=== PATIENT | male | born 1960 | race Caucasian/White ===

== ENCOUNTER → 2019-04-13 | Outpatient (CLI) | payer BC ==
[2019-04-13 16:58] LABS: African American GFR (CKD) >90 (>60 ml/min/1.73 sqM); Anion Gap 12 mmol/L; Blood Urea Nitrogen 11 mg/dL (9-20); Carbon Dioxide 26 mmol/L (22-30); Chloride 100 mmol/L (98-107); Potassium 4.3 mmol/L (3.5-5.1); Sodium 138 mmol/L (137-145)
[2019-04-13 17:02] LABS: HCT 44.6 % (39.0-53.0); HGB 14.4 gm/dL (13.0-17.5); MCH 28.6 pg (25.0-35.0); MCHC 32.3 g/dL (31.0-37.0); MCV 88.6 fL (80.0-100.0); Platelet Count 231 k/uL (150-450); RBC 5.03 m/uL (4.30-5.90); RDW 13.3 % (11.5-15.5); WBC 8.3 k/uL (3.8-10.6)
== END | disposition home or self-care (01) ==
LOC: LABPAT 15:46
PROVIDERS: ATTEND Internal Medicine Interventional Cardiology
DX: Z01.812 Encounter for preprocedural laboratory examination (principal); I25.10 Atherosclerotic heart disease of native coronary artery without angina pectoris
CPT/HCPCS: 80051; 82565; 84520; 85027

== ENCOUNTER → 2019-04-22 | Day surgery (SDC) | payer BC ==
[2019-04-19 16:19] VITALS: BMI 36.9
[~2019-04-22] MED LIST: ALPRAZolam 0.25 MG TAB PO PRN; ALPRAZolam 0.5 MG TAB PO PRN; ASPIRIN 325 MG TAB PO ONE; ATORVASTATIN 80 MG TAB PO ONE; HYDROmorphone 0.5 MG/0.5 ML SYRINGE IVP STA; HYDROmorphone 1 MG/ML 1 ML SYRINGE IVP ONE; HYDROmorphone 1 MG/ML 1 ML SYRINGE ONE; IOPAMIDOL-370 125ML BTL INJ ONE; LIDOCAINE 1% INJ 10MG/ML (20 ML MDV) ONE; LIDOCAINE 1% INJ 10MG/ML (20 ML MDV) SQ ONE; MIDAZOLAM 2 MG/2 ML VIAL IVP ONE; NITROGLYCERIN SL TABS 0.4 MG TAB SUBLINGUAL PRN; RX INFO: IV CONTRAST WAS GIVEN 1 EACH MISC MISCELLANE PRN; SODIUM CHLORIDE 0.9% 1,000 ML IV SCH; SODIUM CHLORIDE 0.9% 1,000 ML in EMPTY BAG 1 BAG IV ONE; hydrALAZINE HCL 20 MG/ML 1 ML VIAL IVP STA
[2019-04-22 11:08] VITALS: RESP 18; TEMP 98.1
[2019-04-22 11:11] LABS: Glucose,Whole Blood 101 mg/dL (75-99)
--- NOTE | 2019-04-22 12:47 | CC ---
CARDIAC CATHETERIZATION REPORT DATE OF SERVICE: 04/22/2019 PERFORMING PHYSICIAN: Sam Rodney MD, Needle Board Repairer. PROCEDURE PERFORMED: 1. Selective left and right coronary angiogram. 2. ECHAVARRIA to LAD angiogram. 3. SVG to diagonal angiogram. 4. Left heart catheterization. INDICATION: This is a 58-year-old gentleman with history of coronary artery disease and prior coronary artery bypass grafting as well as stenting with the last heart catheterization was performed in 2016, showing severe triple-vessel coronary artery disease with patent ECHAVARRIA to LAD, critical disease involving the left circumflex coronary artery and critical disease involving the SVG to diagonal, and patent SVG to RCA, underwent at that point, successful stenting of the left circumflex as well as the SVG to diagonal, was seen in the office recently complaining of chest discomfort concerning for angina. He refused proceeding with a heart catheterization when I asked him to do it because he was busy at work and would like to wait a few more weeks. Because he continues to have chest discomfort, he decided to go with a heart catheterization. APPROACH: Right common femoral artery. COMPLICATION: None. LEVEL OF SEDATION: Moderate with sedation length of 38 minutes. PROCEDURE DESCRIPTION: After obtaining an informed consent, the patient was brought to the cardiac aquatic life laborer. The right common femoral artery was cannulated using micropuncture technique. The micropuncture wire passed easily, then I placed a 6-[place] sheath 11 cm in the right common femoral artery. At that point, I did selective left and right coronary angiogram. That was performed using JL4 and JR4 catheters. ECHAVARRIA to LAD angiogram was performed using JR4 catheter. SVG to diagonal angiogram was performed using the JR4 catheter. The SVG to RCA was performed using Srikanth Landaverde catheter. Left heart catheterization was performed using 6-[place] pigtail catheter. The procedure was completed without any complication. SELECTIVE CORONARY ANGIOGRAM: 1. The left main appeared to have mild to moderate disease in the stented segment. The left main continues as left circumflex without LAD which is occluded. 2. The left circumflex appeared to have mild disease only. Gives rise into a large OM branch which seems to be normal. 3. The right coronary artery is chronically occluded in the proximal portion. 4. The LAD is chronically occluded from the ostium. CORONARY BYPASSES ANGIOGRAM: 1. The ECHAVARRIA to LAD is patent and feeding the diagonal branch. 2. The SVG to diagonal is occluded. 3. The SVG to RCA is patent. CONCLUSION: 1. Severe triple-vessel coronary artery disease. 2. Mild to moderate in-stent restenoses involving the distal left main/left circumflex coronary artery. 3. Patent ECHAVARRIA to LAD. 4. Occluded SVG to diagonal branch. 5. Patent SVG to RCA. POSTPROCEDURE MANAGEMENT: 1. I did advise maximized medical treatment at this point. 2. Continue watching for progression in the disease involving the stent in the distal left main and left circumflex. 3. Follow up with the patient. MMODL / IJN: [id number] /
[2019-04-22 16:42] VITALS: BP 119/67; PULSE 91
== END ==
LOC: CATHCVL 10:32
PROVIDERS: ATTEND Internal Medicine Interventional Cardiology
DX: I25.110 Atherosclerotic heart disease of native coronary artery with unstable angina pectoris (principal); T82.855A Stenosis of coronary artery stent, initial encounter; I25.82 Chronic total occlusion of coronary artery; I25.810 Atherosclerosis of coronary artery bypass graft(s) without angina pectoris; E78.00 Pure hypercholesterolemia, unspecified; I10 Essential (primary) hypertension; E11.9 Type 2 diabetes mellitus without complications; E78.5 Hyperlipidemia, unspecified; E66.9 Obesity, unspecified; F17.210 Nicotine dependence, cigarettes, uncomplicated; Z79.84 Long term (current) use of oral hypoglycemic drugs; Z79.899 Other long term (current) drug therapy; Z79.82 Long term (current) use of aspirin; Z79.02 Long term (current) use of antithrombotics/antiplatelets; Z95.5 Presence of coronary angioplasty implant and graft; Z95.1 Presence of aortocoronary bypass graft; Z82.49 Family history of ischemic heart disease and other diseases of the circulatory system; Z68.36 Body mass index [BMI] 36.0-36.9, adult
CPT/HCPCS: 93459; C1894; C1769 ×2; C1760; J2250; J2001; J1170; Q9967

== ENCOUNTER → 2019-11-29 | Outpatient (CLI) | payer BC ==
--- NOTE | 2019-11-29 16:15 | XR ---
EXAMINATION TYPE: XR chest 2V DATE OF EXAM: 11/29/2019 COMPARISON: NONE HISTORY: Shortness of breath TECHNIQUE: Frontal and lateral views of the chest are obtained. FINDINGS: Scattered senescent parenchymal changes noted. Hyperinflation compatible with COPD. No evidence for infiltrate. No evidence for atelectasis. Heart size is stable. Mediastinal structures are stable and grossly unremarkable. No evidence for hilar prominence. Degenerative changes dorsal spine. IMPRESSION: 1. No evidence for acute pulmonary disease. The patient is cleared for MRI.
--- NOTE | 2019-11-29 16:17 | XR ---
EXAMINATION TYPE: XR orbit detect foreign body DATE OF EXAM: 11/29/2019 COMPARISON: NONE HISTORY: MRI exam TECHNIQUE: 3 views of the orbits FINDINGS: 3 views of the orbits fail demonstrate evidence for radiopaque foreign body. The orbits are intact. IMPRESSION: The patient is cleared for MRI.
== END | disposition home or self-care (01) ==
LOC: RADXRMAIN 15:52
PROVIDERS: ATTEND Physical Medicine & Rehabilitation
DX: Z01.818 Encounter for other preprocedural examination (principal); E11.9 Type 2 diabetes mellitus without complications; K21.9 Gastro-esophageal reflux disease without esophagitis; M54.16 Radiculopathy, lumbar region; M47.817 Spondylosis without myelopathy or radiculopathy, lumbosacral region; M16.0 Bilateral primary osteoarthritis of hip; Z95.1 Presence of aortocoronary bypass graft; Z95.5 Presence of coronary angioplasty implant and graft; Z79.02 Long term (current) use of antithrombotics/antiplatelets; Z87.821 Personal history of retained foreign body fully removed
CPT/HCPCS: 70030; 71046

== ENCOUNTER 2020-12-03 05:59 | Day surgery (SDC) | payer BC ==
[~2020-12-03 05:59] MED LIST changes: -ASPIRIN 325 MG TAB PO ONE; -ATORVASTATIN 80 MG TAB PO ONE; -HYDROmorphone 0.5 MG/0.5 ML SYRINGE IVP STA; -HYDROmorphone 1 MG/ML 1 ML SYRINGE IVP ONE; -HYDROmorphone 1 MG/ML 1 ML SYRINGE ONE; -IOPAMIDOL-370 125ML BTL INJ ONE; -LIDOCAINE 1% INJ 10MG/ML (20 ML MDV) ONE; -LIDOCAINE 1% INJ 10MG/ML (20 ML MDV) SQ ONE; -MIDAZOLAM 2 MG/2 ML VIAL IVP ONE; -RX INFO: IV CONTRAST WAS GIVEN 1 EACH MISC MISCELLANE PRN; -SODIUM CHLORIDE 0.9% 1,000 ML IV SCH; -hydrALAZINE HCL 20 MG/ML 1 ML VIAL IVP STA
[2020-12-03 06:33] LABS: Glucose,Whole Blood 120 mg/dL (75-99)
[2020-12-03 06:37] LABS: Basophils # (A) 0.1 k/uL (0-0.2); Basophils % (A) 1 %; Eosinophils # (A) 0.2 k/uL (0-0.7); Eosinophils % (A) 2 %; HCT 40.9 % (39.0-53.0); HGB 13.9 gm/dL (13.0-17.5); Lymphocytes # (A) 1.5 k/uL (1.0-4.8); Lymphocytes % (A) 25 %; MCH 29.3 pg (25.0-35.0); MCHC 33.9 g/dL (31.0-37.0); MCV 86.4 fL (80.0-100.0); Mean Platelet Volume 7.5; Monocytes # (A) 0.6 k/uL (0-1.0); Monocytes % (A) 9 %; Neutrophils # (A) 3.7 k/uL (1.3-7.7); Neutrophils % (A) 61 %; Platelet Count 196 k/uL (150-450); RBC 4.73 m/uL (4.30-5.90); RDW 13.8 % (11.5-15.5); WBC 6.1 k/uL (3.8-10.6)
[2020-12-03] MEDS ORDERED: ATORVASTATIN 80 MG TAB PO ONE (07:00)
[2020-12-03] MEDS ORDERED: HEPARIN SODIUM,PORCINE 10,000 UNIT in SODIUM CHLORIDE 0.9% 1,000 ML IRRIGATION PRN (07:00)
[2020-12-03] MEDS ORDERED: HEPARIN SODIUM,PORCINE 2,500 UNIT in SODIUM CHLORIDE 0.9% 250 ML IRRIGATION PRN (07:00)
[2020-12-03] MEDS ORDERED: ASPIRIN 325 MG TAB PO ONE (07:00)
[2020-12-03] MEDS ORDERED: LIDOCAINE 1% INJ 10MG/ML (20 ML MDV) ONE (07:21)
[2020-12-03] MEDS ORDERED: MIDAZOLAM 2 MG/2 ML VIAL IVP ONE ×3 (07:48→08:31)
[2020-12-03] MEDS ORDERED: LIDOCAINE 1% INJ 10MG/ML (20 ML MDV) SQ ONE (07:51)
[2020-12-03] MEDS ORDERED: fentaNYL (PF) 50 MCG/ML 2 ML AMP ONE (08:05)
[2020-12-03] MEDS ORDERED: fentaNYL (PF) 50 MCG/ML 2 ML AMP IVP ONE (08:07)
[2020-12-03] MEDS ORDERED: HEPARIN SODIUM 1,000 UN/ML (10ML VL) ONE (08:12)
[2020-12-03] MEDS ORDERED: HEPARIN SODIUM 1,000 UN/ML (10ML VL) IV ONE (08:14)
[2020-12-03] MEDS ORDERED: IOPAMIDOL-370 125ML BTL INJ ONE ×2 (08:41→08:50)
[2020-12-03] MEDS ORDERED: CLOPIDOGREL 75 MG TAB ONE (08:44)
[2020-12-03] MEDS ORDERED: CLOPIDOGREL 75 MG TAB PO ONE (08:46)
[2020-12-03] MEDS ORDERED: NON FORMULARY DRUG (Liraglutide [Victoza 2-Pak] 0.6 MG/0.1 ML Pen.Injctr) SQ SCH (09:00)
[2020-12-03] MEDS ORDERED: NON FORMULARY DRUG (Ubidecarenone [Co Q-10] 100 MG Capsule) PO SCH (09:00)
[2020-12-03] MEDS ORDERED: NON FORMULARY DRUG (Vitamin B Complex [Vitamin B Complex] 1 EACH Capsule) PO SCH (09:00)
[2020-12-03] MEDS ORDERED: MAG HYDROX/AL HYDROX/SIMETH 30 ML CUP PO PRN (09:03)
[2020-12-03] MEDS ORDERED: ATROPINE SULFATE 0.1 MG/ML 10ML SYRINGE IV PRN (09:03)
[2020-12-03] MEDS ORDERED: RX INFO: IV CONTRAST WAS GIVEN 1 EACH MISC MISCELLANE PRN (09:03)
[2020-12-03] MEDS: PIOGLITAZONE 15 MG TAB PO SCH (13:54)
[2020-12-03] MEDS: SODIUM CHLORIDE 0.9% 1,000 ML IV SCH (14:12)
[2020-12-03 15:39] VITALS: BMI 38.9
[2020-12-03 16:48] LABS: Glucose,Whole Blood 89 mg/dL (75-99)
--- NOTE | 2020-12-03 16:53 | CC ---
CARDIAC CATHETERIZATION REPORT DATE OF SERVICE: December 03, 2020. PERFORMING PHYSICIAN: Sam Rodney MD. PROCEDURE PERFORMED: 1. Selective left and right coronary angiogram. 2. ECHAVARRIA to LAD angiogram. 3. SVG to RCA angiogram. 4. Left heart catheterization. 5. Fractional flow reserve, FFR of the LCX. 6. Successful stenting of the left circumflex using 3.0 x 15 mm Xience drug-eluting stent with an excellent angiographic results. 7. Successful stenting of protected left main using 3.5 x 8 mm Xience TATIANNA with an excellent angiographic result. 8. Selective right common femoral artery angiogram. INDICATION: This is a pleasant 60-year-old gentleman with coronary artery disease and prior revascularization was diagnosed recently with cardiomyopathy. APPROACH: Right common femoral artery. COMPLICATION: None. LEVEL OF SEDATION: Moderate with sedation length of 65 minutes. PROCEDURE DESCRIPTION: After obtaining informed consent, the patient was brought to the cardiac geophysical laboratory supervisor. The right common femoral artery was cannulated using micropuncture technique and the micropuncture wire passed easily. Then I placed a 6-[place]banian sheath 11 cm at the right groin. Selective left and right coronary angiogram done using JL4 and JR4 catheters. ECHAVARRIA to LAD angiogram was performed using the JR4 catheter and the SVG to RCA angiogram was performed using Srikanth Landaverde catheter. Left heart catheterization was performed using the Srikanth Landaverde, which crossed the aortic valve. Then I did pullback across the valve. After that, I did intervene on the left circumflex. Please see a separate paragraph for that. SELECTIVE CORONARY ANGIOGRAM: 1. The left main has disease appeared to be in the range of 50%. Bifurcates into occluded LAD and left circumflex. 2. The left circumflex is a large caliber vessel. It is a nondominant vessel. The proximal left circumflex has a lesion appeared to be in the range of 70%. That was documented by FFR. 3. The RCA is 100% occluded by the proximal portion. CORONARY BYPASSES ANGIOGRAM: 1. The ECHAVARRIA to LAD is patent. 2. The SVG to RCA is patent. FFR OF THE LCX AND PCI OF THE LEFT CIRCUMFLEX: Anticoagulation was achieved using heparin with continuous ACT monitoring throughout the procedure. After zeroing the Doppler wire and equalizing between the Doppler wire and the guiding catheter, we did an FFR of the left circumflex and that came in to be ischemic. Subsequently, I intervened on the left circumflex and left main. I did balloon angioplasty using 3.0 x 12 mm balloon before I deployed 3.0 x 15 mm in the circ and 3 x 5 x 8 mm in the left main. After that, I post dilated both stents using 3.5 mm NC balloon. The final angiogram showed excellent angiographic results. CONCLUSION: 1. Newly diagnosis cardiomyopathy. 2. Severe triple-vessel coronary artery disease. 3. Patent ECHAVARRIA to LAD. 4. Severe disease involving unprotected left circumflex. 5. Patent SVG to RCA. 6. Successful stenting of the LCX and protected left main as described above. MMODL / IJN: [id number] /
[2020-12-03 20:00] VITALS: RESP 16
[2020-12-03] MEDS: RANOLAZINE 500 MG TAB.ER.12H PO SCH (20:17)
[2020-12-03] MEDS ORDERED: atenoloL 25 MG TAB PO SCH (21:00)
[2020-12-03] MEDS ORDERED: ATORVASTATIN 80 MG TAB PO SCH (21:00)
[2020-12-03] MEDS ORDERED: GLIMEPIRIDE 1 MG TAB PO SCH (21:00)
[2020-12-03 23:58] LABS: Glucose,Whole Blood 108 mg/dL (75-99)
[2020-12-04] MEDS: SODIUM CHLORIDE 0.9% 1,000 ML IV SCH (03:13)
[2020-12-04 05:36] LABS: Glucose,Whole Blood 128 mg/dL (75-99)
[2020-12-04 06:37] LABS: Basophils # (A) 0.1 k/uL (0-0.2); Basophils % (A) 1 %; Eosinophils # (A) 0.2 k/uL (0-0.7); Eosinophils % (A) 2 %; HCT 46.1 % (39.0-53.0); HGB 14.9 gm/dL (13.0-17.5); Lymphocytes # (A) 1.6 k/uL (1.0-4.8); Lymphocytes % (A) 17 %; MCH 28.4 pg (25.0-35.0); MCHC 32.4 g/dL (31.0-37.0); MCV 87.8 fL (80.0-100.0); Mean Platelet Volume 7.5; Monocytes # (A) 0.7 k/uL (0-1.0); Monocytes % (A) 8 %; Neutrophils # (A) 6.4 k/uL (1.3-7.7); Neutrophils % (A) 71 %; Platelet Count 206 k/uL (150-450); RBC 5.25 m/uL (4.30-5.90); RDW 13.8 % (11.5-15.5)
[2020-12-04 06:50] LABS: African American GFR (CKD) >90 (>60 ml/min/1.73 sqM); Anion Gap 10 mmol/L; Blood Urea Nitrogen 12 mg/dL (9-20); Calcium 9.8 mg/dL (8.4-10.2); Carbon Dioxide 27 mmol/L (22-30); Chloride 105 mmol/L (98-107); Glucose 144 mg/dL (74-99); Non-African American GFR(CKD) >90 (>60 ml/min/1.73 sqM); Potassium 4.2 mmol/L (3.5-5.1); Sodium 142 mmol/L (137-145)
[2020-12-04] MEDS ORDERED: PANTOPRAZOLE 40 MG TABLET PO SCH (07:30)
[2020-12-04] MEDS: PIOGLITAZONE 15 MG TAB PO SCH (08:28)
[2020-12-04] MEDS: RANOLAZINE 500 MG TAB.ER.12H PO SCH (08:28)
[2020-12-04 08:39] VITALS: BP 129/77; PULSE 77; TEMP 98.1
[2020-12-04] MEDS ORDERED: CLOPIDOGREL 75 MG TAB PO SCH (09:00)
[2020-12-04] MEDS ORDERED: ASPIRIN 81 MG PO SCH (09:00)
[2020-12-04] MEDS ORDERED: ISOSORBIDE MONONITRATE ER 60 MG TAB.ER.24H PO SCH (09:00)
[2020-12-04] MEDS ORDERED: atenoloL 50 MG TAB PO SCH (09:00)
[2020-12-04] MEDS ORDERED: lisinopriL 5 MG TAB PO SCH (09:00)
--- NOTE | 2020-12-04 09:28 | DS ---
DISCHARGE SUMMARY DATE OF ADMISSION: 12/03/2020 DATE OF DISCHARGE: 12/04/2020 BRIEF HISTORY: This is a very pleasant 60-year-old gentleman with coronary artery disease who underwent yesterday heart catheterization and PCI of protected left main and proximal left circumflex coronary artery with an excellent angiographic result and without any complication. The patient was seen this morning. The right groin is soft and nontender and without any bruises. The patient is going to be discharged home on dual anti-platelet therapy and I will follow up with the patient next week in the office. MMSAHARAL / [place]LY[place]: [id number] /
== END 2020-12-04 08:45 | disposition home or self-care (01) ==
LOC: CATHCVL 05:59 → 6NMEDSUR 08:53 → CATHCVL 12-04 08:45
PROVIDERS: ATTEND Internal Medicine Interventional Cardiology
DX: E78.5 Hyperlipidemia, unspecified (principal); I10 Essential (primary) hypertension; E66.9 Obesity, unspecified; Z68.38 Body mass index [BMI] 38.0-38.9, adult; Z20.822 Contact with and (suspected) exposure to COVID-19; Z95.1 Presence of aortocoronary bypass graft; Z95.5 Presence of coronary angioplasty implant and graft; Z82.49 Family history of ischemic heart disease and other diseases of the circulatory system; Z72.0 Tobacco use; Z79.84 Long term (current) use of oral hypoglycemic drugs; Z79.02 Long term (current) use of antithrombotics/antiplatelets; Z79.82 Long term (current) use of aspirin
CPT/HCPCS: 93571; 93459; 80048; 85025 ×2; 87635; C9600 ×2; C1760 ×2; C1887; C1725 ×2; C1894; C1769 ×3; C1874; J2250; J2001; J3010; J1644; Q9967

== ENCOUNTER 2020-12-07 09:42 | Observation (INO) | payer BC ==
[2020-12-07] MEDS ORDERED: NITROGLYCERIN OINT 1 INCH/GM PACKET TOPICAL STA (10:13)
[2020-12-07] MEDS ORDERED: ASPIRIN 81 MG PO STA (10:13)
--- NOTE | 2020-12-07 10:16 | ED ---
General Adult HPI - General Chief complaint: Chest Pain Stated complaint: chest pain Time Seen by Provider: 12/07/20 09:50 Source: patient, RN notes reviewed, old records reviewed Mode of arrival: ambulatory Limitations: no limitations - History of Present Illness Initial comments: This is a 60-year-old male who presents emergency Department complaining of chest discomfort on and off for the last 2-3 days. Patient states it typically lasts about 30 minutes. Patient states nitroglycerin seems to help and most cases but not always. Patient states there is no shortness of breath or difficulty breathing. Patient denies any radiation of the pain. Patient denies any diaphoretic episodes. Patient states he had 2 stents placed on Thursday by Dr. Rodney. Patient denies any recent fever chills or cough. Patient denies any abdominal pain patient denies nausea vomiting diarrhea. - Related Data Home Medications Medication Instructions Recorded Confirmed Esomeprazole Magnesium [NexIUM] 40 mg PO DAILY 01/21/16 12/07/20 Ubidecarenone [Co Q-10] 100 mg PO DAILY 01/21/16 12/07/20 atenoloL [Tenormin] 25 mg PO HS 01/21/16 12/07/20 Benazepril HCl 5 mg PO DAILY 02/14/16 12/07/20 Empagliflozin [Jardiance] 10 mg PO DAILY 11/29/20 12/07/20 Glimepiride [Amaryl] 1 mg PO HS 11/29/20 12/07/20 Rosuvastatin Calcium [Crestor] 40 mg PO HS 11/29/20 12/07/20 Aspirin EC [Ecotrin Low Dose] 81 mg PO DAILY 12/07/20 12/07/20 Isosorbide Mononitrate ER [Imdur] 60 mg PO DAILY 12/07/20 12/07/20 Liraglutide [Victoza 3-Josh] 1.8 mg SQ DAILY 12/07/20 12/07/20 Pioglitazone [Actos] 15 mg PO DAILY 12/07/20 12/07/20 Ranolazine [Ranolazine ER] 500 mg PO BID 12/07/20 12/07/20 Super C Complex W/D3 & Zinc 1 tab PO DAILY 12/07/20 12/07/20 atenoloL [Atenolol] 50 mg PO DAILY 12/07/20 12/07/20 metFORMIN HCL [Glucophage] 1,000 mg PO BID 12/07/20 12/07/20 Previous Rx's Medication Instructions Recorded Clopidogrel [Plavix] 75 mg PO DAILY #90 tab 01/22/16 Nitroglycerin Sl Tabs [Nitrostat] 0.4 mg SUBLINGUAL Q5M PRN #60 tab 01/22/16 Allergies Allergy/AdvReac Type Severity Reaction Status Date / Time No Known Allergies Allergy Verified 12/07/20 11:08 Review of Systems ROS Statement: Those systems with pertinent positive or pertinent negative responses have been documented in the HPI. ROS Other: All systems not noted in ROS Statement are negative. Past Medical History Past Medical History: Coronary Artery Disease (CAD), Chest Pain / Angina, Diabetes Mellitus, GERD/Reflux, Hyperlipidemia, Sleep Apnea/CPAP/BIPAP Additional Past Medical History / Comment(s): . History of Any Multi-Drug Resistant Organisms: None Reported Past Surgical History: Coronary Bypass/CABG, Heart Catheterization, Heart Catheterization With Stent, Orthopedic Surgery Additional Past Surgical History / Comment(s): spouse unsure how many stents, 1997, 1998 cardiac caths, 1998- 3 vessel CABG, arthroscopy rt knee, Past Anesthesia/Blood Transfusion Reactions: Motion Sickness Date of Last Stent Placement:: 01/21/16 Past Psychological History: No Psychological Hx Reported Smoking Status: Former smoker Past Alcohol Use History: None Reported Past Drug Use History: None Reported - Past Family History Father Family Medical History: Myocardial Infarction ([place]) Additional Family Medical History / Comment(s): Father of a [place] at the age of 52 yrs. Mother Family Medical History: Coronary Artery Disease (CAD), Diabetes Mellitus Additional Family Medical History / Comment(s): CABG General Exam - General Exam Comments Initial Comments: GENERAL: Patient is well-developed and well-nourished. Patient is nontoxic and well- hydrated and is in mild distress. ENT: Neck is soft and supple. No significant lymphadenopathy is noted. Oropharynx is clear. Moist mucous membranes. Neck has full range of motion without eliciting any pain. EYES: The sclera were anicteric and conjunctiva were pink and moist. Extraocular movements were intact and pupils were equal round and reactive to light. Eye lids were unremarkable. PULMONARY: Unlabored respirations. Good breath sounds bilaterally. No audible rales rhonchi or wheezing was noted. CARDIOVASCULAR: There is a regular rate and rhythm without any murmurs gallops or rubs. ABDOMEN: Soft and nontender with normal bowel sounds. SKIN: Skin is clear with no lesions or rashes and otherwise unremarkable. NEUROLOGIC: Patient is alert and oriented x3. Cranial nerves II through XII are grossly intact. Motor and sensory are also intact. Normal speech, volume and content. Symmetrical smile. MUSCULOSKELETAL: Normal extremities with adequate strength and full range of motion. LYMPHATICS: No significant lymphadenopathy is noted PSYCHIATRIC: Normal psychiatric evaluation. Some ecchymosis to the right groin. No signs of a hematoma. Limitations: no limitations Course Vital Signs 12/07/20 12/07/20 09:48 11:16 Temperature 98.1 F Pulse Rate 96 88 Respiratory 16 18 Rate Blood Pressure 95/60 120/71 O2 Sat by Pulse 99 96 Oximetry Medical Decision Making - Medical Decision Making EKG shows normal sinus rhythm at 92 bpm IL interval 258 QRSs 86 QT interval 332 QTC is 410. Patient's EKG shows some T-wave inversion in the precordial leads as well as the lateral leads 1 and aVL Chest x-ray shows no acute abnormality. Patient's troponin was mildly elevated so started the patient on heparin. I spoke with Dr. Rodney. I spoke with some physicians he agreed to admit the patient admitted the patient wrote admitting orders I continued aspirin and Nitropaste and heparin on the floor. - Lab Data Result diagrams: 12/07/20 10:16 12/07/20 10:16 Lab Results 12/07/20 12/07/20 12/07/20 Range/Units 10:16 10:16 10:16 WBC 7.6 (3.8-10.6) k/uL RBC 4.71 (4.30-5.90) m/uL Hgb 13.5 (13.0-17.5) gm/dL Hct 40.9 (39.0-53.0) % MCV 86.8 (80.0-100.0) fL MCH 28.6 (25.0-35.0) pg MCHC 32.9 (31.0-37.0) g/dL RDW 13.8 (11.5-15.5) % Plt Count 208 (150-450) k/uL MPV 7.6 Neutrophils % 62 % Lymphocytes % 24 % Monocytes % 9 % Eosinophils % 2 % Basophils % 1 % Neutrophils # 4.7 (1.3-7.7) k/uL Lymphocytes # 1.9 (1.0-4.8) k/uL Monocytes # 0.6 (0-1.0) k/uL Eosinophils # 0.2 (0-0.7) k/uL Basophils # 0.1 (0-0.2) k/uL PT 10.1 (9.0-12.0) sec INR 0.9 (<1.2) APTT 24.5 (22.0-30.0) sec Sodium 137 (137-145) mmol/L Potassium 4.5 (3.5-5.1) mmol/L Chloride 103 (98-107) mmol/L Carbon Dioxide 23 (22-30) mmol/L Anion Gap 11 mmol/L BUN 17 (9-20) mg/dL Creatinine 0.81 (0.66-1.25) mg/dL Est GFR (CKD-EPI)AfAm >90 (>60 ml/min/1.73 sqM) Est GFR (CKD-EPI)NonAf >90 (>60 ml/min/1.73 sqM) Glucose 107 H (74-99) mg/dL Calcium 10.0 (8.4-10.2) mg/dL Magnesium 1.7 (1.6-2.3) mg/dL Total Bilirubin 0.7 (0.2-1.3) mg/dL AST 22 (17-59) U/L ALT 19 (4-49) U/L Alkaline Phosphatase 59 (38-126) U/L Troponin I (0.000-0.034) ng/mL Total Protein 7.1 (6.3-8.2) g/dL Albumin 4.4 (3.5-5.0) g/dL 12/07/20 Range/Units 10:16 WBC (3.8-10.6) k/uL RBC (4.30-5.90) m/uL Hgb (13.0-17.5) gm/dL Hct (39.0-53.0) % MCV (80.0-100.0) fL MCH (25.0-35.0) pg MCHC (31.0-37.0) g/dL RDW (11.5-15.5) % Plt Count (150-450) k/uL MPV Neutrophils % % Lymphocytes % % Monocytes % % Eosinophils % % Basophils % % Neutrophils # (1.3-7.7) k/uL Lymphocytes # (1.0-4.8) k/uL Monocytes # (0-1.0) k/uL Eosinophils # (0-0.7) k/uL Basophils # (0-0.2) k/uL PT (9.0-12.0) sec INR (<1.2) APTT (22.0-30.0) sec Sodium (137-145) mmol/L Potassium (3.5-5.1) mmol/L Chloride (98-107) mmol/L Carbon Dioxide (22-30) mmol/L Anion Gap mmol/L BUN (9-20) mg/dL Creatinine (0.66-1.25) mg/dL Est GFR (CKD-EPI)AfAm (>60 ml/min/1.73 sqM) Est GFR (CKD-EPI)NonAf (>60 ml/min/1.73 sqM) Glucose (74-99) mg/dL Calcium (8.4-10.2) mg/dL Magnesium (1.6-2.3) mg/dL Total Bilirubin (0.2-1.3) mg/dL AST (17-59) U/L ALT (4-49) U/L Alkaline Phosphatase (38-126) U/L Troponin I 0.061 H* (0.000-0.034) ng/mL Total Protein (6.3-8.2) g/dL Albumin (3.5-5.0) g/dL Critical Care Time Critical Care Time: Yes Total Critical Care Time: 35 Disposition Clinical Impression: Unstable angina pectoris Disposition: ADMITTED IP TO THIS HOSP Referrals: Thao Khan MD [Primary Care Provider] - 1-2 days Time of Disposition: 11:23
[2020-12-07 10:27] LABS: Basophils # (A) 0.1 k/uL (0-0.2); Basophils % (A) 1 %; Eosinophils # (A) 0.2 k/uL (0-0.7); Eosinophils % (A) 2 %; HCT 40.9 % (39.0-53.0); HGB 13.5 gm/dL (13.0-17.5); Lymphocytes # (A) 1.9 k/uL (1.0-4.8); Lymphocytes % (A) 24 %; MCH 28.6 pg (25.0-35.0); MCHC 32.9 g/dL (31.0-37.0); MCV 86.8 fL (80.0-100.0); Mean Platelet Volume 7.6; Monocytes # (A) 0.6 k/uL (0-1.0); Monocytes % (A) 9 %; Neutrophils # (A) 4.7 k/uL (1.3-7.7); Neutrophils % (A) 62 %; Platelet Count 208 k/uL (150-450); RBC 4.71 m/uL (4.30-5.90); RDW 13.8 % (11.5-15.5); WBC 7.6 k/uL (3.8-10.6)
[2020-12-07 10:37] LABS: ALT 19 U/L (4-49); AST 22 U/L (17-59); African American GFR (CKD) >90 (>60 ml/min/1.73 sqM); Albumin 4.4 g/dL (3.5-5.0); Alkaline Phosphatase 59 U/L (38-126); Anion Gap 11 mmol/L; Blood Urea Nitrogen 17 mg/dL (9-20); Carbon Dioxide 23 mmol/L (22-30); Chloride 103 mmol/L (98-107); Glucose 107 mg/dL (74-99); INR 0.9 (<1.2); Magnesium 1.7 mg/dL (1.6-2.3); Non-African American GFR(CKD) >90 (>60 ml/min/1.73 sqM); Partial Thromboplastin Time 24.5 sec (22.0-30.0); Potassium 4.5 mmol/L (3.5-5.1); Prothrombin Time 10.1 sec (9.0-12.0); Sodium 137 mmol/L (137-145); Total Bilirubin 0.7 mg/dL (0.2-1.3); Total Protein 7.1 g/dL (6.3-8.2)
--- NOTE | 2020-12-07 11:09 | XR ---
EXAMINATION TYPE: XR chest 2V DATE OF EXAM: 12/07/2020 COMPARISON: 11/29/2019 HISTORY: Chest pain TECHNIQUE: Frontal and lateral views of the chest are obtained. FINDINGS: Status post median sternotomy. Multiple overlying leads. Heart size is enlarged. No pleura l effusion or pneumothorax. There is central pulmonary vascular prominence which may represent pulmon zhang vascular congestion. Ossicular and degenerative changes of thoracic spine. IMPRESSION: 1. Cardiomegaly and Central pulmonary vascular congestion.
[2020-12-07] MEDS ORDERED: HEPARIN SODIUM 1,000 UN/ML (10ML VL) IV ONE (11:22)
[2020-12-07] MEDS ORDERED: NITROGLYCERIN SL TABS 0.4 MG TAB SUBLINGUAL PRN (11:25)
[2020-12-07] MEDS ORDERED: HEPARIN SOD,PORK IN 0.45% NACL 25,000 UNIT in 0.45% NACL 1 250ML.BAG IV SCH (11:30)
[2020-12-07] MEDS: NITROGLYCERIN OINT 1 INCH/GM PACKET TOPICAL SCH ×2 (12:15→14:39)
[2020-12-07] MEDS ORDERED: ALPRAZolam 0.25 MG TAB PO PRN (12:58)
[2020-12-07] MEDS ORDERED: SODIUM CHLORIDE 0.9% 1,000 ML in EMPTY BAG 1 BAG IV ONE (12:58)
[2020-12-07] MEDS ORDERED: ALPRAZolam 0.5 MG TAB PO PRN (12:58)
[2020-12-07] MEDS ORDERED: ATORVASTATIN 80 MG TAB PO STA (12:58)
[2020-12-07] MEDS ORDERED: VERAPAMIL 2.5 MG/ML 2 ML AMP ONE (13:05)
[2020-12-07] MEDS ORDERED: LIDOCAINE 1% INJ 10MG/ML (20 ML MDV) ONE (13:05)
[2020-12-07] MEDS ORDERED: IV FLUID CONTINUATION 500 ML IV ONE (13:20)
[2020-12-07] MEDS ORDERED: MIDAZOLAM 2 MG/2 ML VIAL IV ONE (13:28)
[2020-12-07] MEDS ORDERED: LIDOCAINE 1% INJ 10MG/ML (20 ML MDV) SQ ONE (13:30)
--- NOTE | 2020-12-07 13:49 | P.CRDCN ---
History of Present Illness History of present illness: HISTORY OF PRESENTING ILLNESS This is a pleasant 60-year-old male past medical history significant for coronary artery disease status post bypass grafting, recent PCI of the circumflex and left main, diabetes mellitus, hypertension, dyslipidemia and obesity. He follows in the office with Dr. Rodney. We have been asked to see in consultation for chest pain. He was brought in earlier this week for elective cardiac catheterization that revealed a patent ECHAVARRIA to LAD and a patent SVG to RCA, FFR of the circumflex and left main was ischemic. He underwent successful PCI of the circumflex and left main at that time. He was discharged home in stable condition. He developed discomfort in the right flank 2 days ago that was radiating up to the epigastric region. He initially thought it was possibly indigestion however the symptoms persisted and progressed. Discomfort in the flank has subsided and he started having worsening tightness in the epigastric region. He denies associated shortness of breath, dizziness or palpitations. The discomfort was relieved by sublingual nitroglycerin at home. However his discomfort did come back. Currently he is having ongoing discomfort. EKG reveals sinus mechanism with T-wave inversions noted in the lateral leads with ST depression anteriorly. Consistent with previous EKGs. No significant change appreciated. Chest x-ray reveals pulmonary vascular prominence. Laboratory data reviewed, CBC unremarkable, sodium 137, potassium 4.5, creatinine 0.81, magnesium 1.7 and troponin 0.0 61. Current daily cardiac medications include aspirin 81 mg daily, Ranexa 500 mg twice a day, benazepril 5 mg daily, Plavix 75 mg daily, Imdur 60 mg daily, atenolol 50 mg daily and 25 mg at bedtime and rosuvastatin 40 mg daily. Most recent echocardiogram obtained in the office in October 2020 revealed mildly impaired LV systolic function with ejection fraction 45%, normal diastolic function, mildly dilated left atrium and mild tricuspid regurgitation. REVIEW OF SYSTEMS At the time of my exam: CONSTITUTIONAL: Denies fever or chills. CARDIOVASCULAR: Denies chest pain, shortness of breath, orthopnea, PND or palpitations. RESPIRATORY: Denies cough. GASTROINTESTINAL: Denies abdominal pain, diarrhea, constipation, nausea or vomiting. MUSCULOSKELETAL: Denies myalgias. NEUROLOGIC: Denies numbness, tingling, headacbe or weakness. ENDOCRINE: Denies fatigue, weight change, polydipsia or polyurina. GENITOURINARY: Denies burning, hematuria or urgency with micturation. HEMATOLOGIC: Denies history of anemia or bleeding. PHYSICAL EXAMINATION Blood pressure 113/66 heart rate 86 afebrile and maintaining oxygen saturation on nasal cannula. CONSTITUTIONAL: No apparent distress. Obese. HEENT: Head is normocephalic. Pupils are equal, round. Sclerae anicteric. Mucous membranes of the mouth are moist. No JVD. No carotid bruit. CHEST EXAMINATION: Lungs are clear to auscultation. No chest wall tenderness is noted on palpation or with deep breathing. HEART EXAMINATION: Regular rate and rhythm. S1, S2 heard. No murmurs, gallops or rub. ABDOMEN: Soft, nontender. Positive bowel sounds. EXTREMITIES: 2+ peripheral pulses, no lower extremity edema and no calf tenderness. NEUROLOGIC EXAMINATION: Patient is awake, alert and oriented x3. ASSESSMENT Chest pain Recent PCI of the left main and circumflex artery Coronary artery disease status post bypass grafting Hypertension Dyslipidemia Diabetes mellitus Obesity, BMI 38 PLAN Proceed with cardiac catheterization to assess for in-stent restenosis. I have discussed the risks, benefits and alternative therapies for the above- mentioned procedure and for both sedation/analgesia as well as necessary blood product administration, if indicated, as they pertain to this patient. The patient has indicated understanding and acceptance of the risks and procedures discussed. Consent been answered appropriately and he is agreeable to move forward with the above stated procedure. His is at the bedside. Further recommendations will follow based upon clinical course. Thank you kindly for this consultation. Nurse Practitioner note has been reviewed, I agree with a documented findings a nd plan of care. Patient was seen and examined. Past Medical History Past Medical History: Coronary Artery Disease (CAD), Chest Pain / Angina, Diabetes Mellitus, GERD/Reflux, Hyperlipidemia, Sleep Apnea/CPAP/BIPAP Additional Past Medical History / Comment(s): . History of Any Multi-Drug Resistant Organisms: None Reported Past Surgical History: Coronary Bypass/CABG, Heart Catheterization, Heart Catheterization With Stent, Orthopedic Surgery Additional Past Surgical History / Comment(s): spouse unsure how many stents, 1997, 1998 cardiac caths, 1998- 3 vessel CABG, arthroscopy rt knee, Past Anesthesia/Blood Transfusion Reactions: Motion Sickness Date of Last Stent Placement:: 01/21/16 Past Psychological History: No Psychological Hx Reported Smoking Status: Former smoker Past Alcohol Use History: None Reported Past Drug Use History: None Reported - Past Family History Father Family Medical History: Myocardial Infarction (MS) Additional Family Medical History / Comment(s): Father of a MS at the age of 52 yrs. Mother Family Medical History: Coronary Artery Disease (CAD), Diabetes Mellitus Additional Family Medical History / Comment(s): CABG Medications and Allergies Home Medications Medication Instructions Recorded Confirmed Type Esomeprazole Magnesium [NexIUM] 40 mg PO DAILY 01/21/16 12/07/20 History Ubidecarenone [Co Q-10] 100 mg PO DAILY 01/21/16 12/07/20 History atenoloL [Tenormin] 25 mg PO HS 01/21/16 12/07/20 History Clopidogrel [Plavix] 75 mg PO DAILY #90 tab 01/22/16 12/07/20 Rx Nitroglycerin Sl Tabs [Nitrostat] 0.4 mg SUBLINGUAL Q5M PRN #60 tab 01/22/16 12/07/20 Rx Benazepril HCl 5 mg PO DAILY 02/14/16 12/07/20 History Empagliflozin [Jardiance] 10 mg PO DAILY 11/29/20 12/07/20 History Glimepiride [Amaryl] 1 mg PO HS 11/29/20 12/07/20 History Rosuvastatin Calcium [Crestor] 40 mg PO HS 11/29/20 12/07/20 History Aspirin EC [Ecotrin Low Dose] 81 mg PO DAILY 12/07/20 12/07/20 History Isosorbide Mononitrate ER [Imdur] 60 mg PO DAILY 12/07/20 12/07/20 History Liraglutide [Victoza 3-Josh] 1.8 mg SQ DAILY 12/07/20 12/07/20 History Pioglitazone [Actos] 15 mg PO DAILY 12/07/20 12/07/20 History Ranolazine [Ranolazine ER] 500 mg PO BID 12/07/20 12/07/20 History Super C Complex W/D3 & Zinc 1 tab PO DAILY 12/07/20 12/07/20 History atenoloL [Atenolol] 50 mg PO DAILY 12/07/20 12/07/20 History metFORMIN HCL [Glucophage] 1,000 mg PO BID 12/07/20 12/07/20 History Allergies Allergy/AdvReac Type Severity Reaction Status Date / Time No Known Allergies Allergy Verified 12/07/20 11:08 Physical Exam Vitals: Vital Signs Temp Pulse Resp BP Pulse Ox 12/07/20 12:18 86 18 113/66 12/07/20 11:16 88 18 120/71 96 12/07/20 09:48 98.1 F 96 16 95/60 99 Intake and Output 12/06/20 12/07/20 12/07/20 22:59 06:59 14:59 Other: Weight 111.13 kg Results 12/07/20 10:16 12/07/20 10:16 Cardiac Enzymes 12/07/20 12/07/20 Range/Units 10:16 10:16 AST 22 (17-59) U/L Troponin I 0.061 H* (0.000-0.034) ng/mL Coagulation 12/07/20 Range/Units 10:16 PT 10.1 (9.0-12.0) sec APTT 24.5 (22.0-30.0) sec CBC 12/07/20 Range/Units 10:16 WBC 7.6 (3.8-10.6) k/uL RBC 4.71 (4.30-5.90) m/uL Hgb 13.5 (13.0-17.5) gm/dL Hct 40.9 (39.0-53.0) % Plt Count 208 (150-450) k/uL Comprehensive Metabolic Panel 12/07/20 Range/Units 10:16 Sodium 137 (137-145) mmol/L Potassium 4.5 (3.5-5.1) mmol/L Chloride 103 (98-107) mmol/L Carbon Dioxide 23 (22-30) mmol/L BUN 17 (9-20) mg/dL Creatinine 0.81 (0.66-1.25) mg/dL Glucose 107 H (74-99) mg/dL Calcium 10.0 (8.4-10.2) mg/dL AST 22 (17-59) U/L ALT 19 (4-49) U/L Alkaline Phosphatase 59 (38-126) U/L Total Protein 7.1 (6.3-8.2) g/dL Albumin 4.4 (3.5-5.0) g/dL Current Medications Generic Name Dose Route Start Last Admin Trade Name Freq PRN Reason Stop Dose Admin Aspirin 325 mg 12/08/20 09:00 Aspirin 325 Mg Tab PO DAILY MALU Heparin Sodium/Sodium Chloride 250 mls @ 9.999 mls/hr 12/07/20 11:30 12/07/20 11:52 25,000 unit/ Sodium Chloride IV 8.998 units/kg/hr .Q24H MALU 9.999 mls/hr Administration Protocol 8.998 UNITS/KG/HR Nitroglycerin 0.4 mg 12/07/20 11:25 Nitroglycerin Sl Tabs 0.4 Mg Tab SUBLINGUAL Q5M PRN Chest Pain Nitroglycerin 1 inch 12/07/20 12:00 12/07/20 12:15 Nitroglycerin Oint 1 Inch/Gm Packet TOPICAL Not Given Q6HR MALU Intake and Output 12/06/20 12/07/20 12/07/20 22:59 06:59 14:59 Other: Weight 111.13 kg Patient Weight 12/08/20 06:59 Weight 111.13 kg 12/07/20 10:16 12/07/20 10:16
[2020-12-07] MEDS ORDERED: IOPAMIDOL-370 125ML BTL INJ ONE (13:59)
[2020-12-07] MEDS ORDERED: RX INFO: IV CONTRAST WAS GIVEN 1 EACH MISC MISCELLANE PRN (14:03)
[2020-12-07] MEDS ORDERED: SODIUM CHLORIDE 0.9% 1,000 ML IV SCH (14:15)
[2020-12-07 14:35] LABS: Glucose,Whole Blood 87 mg/dL (75-99)
--- NOTE | 2020-12-07 15:19 | P.HPIM ---
<Ashok José - Last Filed: 12/07/20 15:03> History of Present Illness H&P Date: 12/07/20 Chief Complaint: CHEST PAIN History of Presenting Illness: Patient is a 60-year-old male with a past medical history of hypertension, hyperlipidemia, and CAD with previous triple bypass in 1998 underwent stenting of left circumflex and left main on Thursday12/03/[address] Rodney. Patient reports status post cardiac catheterization and he felt well but reports that he began experiencing intermittent chest pain on Thursday and persisted to wax and wane throughout the next 3 days. Patient states this morning the pain seemed a little different or worse so he took a nitro which seemed to improve the pain so he took a second nitro which again seemed to improve the pain. Patient reports he called the electronics instructor's office and was instructed to come straight to the emergency department. In the emergency department patient was seen and fully evaluated. Chest x-ray completed showing cardiomegaly with central pulmonary vascular congestion. EKG completed showing normal sinus rhythm and 92 bpm with T-wave inversion in leads V2 through V6 which is unchanged from previous EKG obtained on 12/03/20. Troponin was slightly elevated at 0.061. The remainder of the labs including CBC, BMP, coags, and liver profile were unremarkable. Patient started on heparin infusion and was admitted under our services with consultation to cardiology. Upon assessment of bedside patient reports feeling slightly better but does state that his slight chest pain/pressure he's been experiencing continues to wax and wane. He denies having any headache, lightheadedness, cough or congestion, palpitations, shortness of breath, nausea, abdominal pain, vomiting, or experiencing any numbness/tingling/weakness/swelling in his extremities. Review of systems: Pertinent positives and negatives as discussed in HPI, a complete review of systems was performed and all other systems are negative. Physical exam: General: non toxic, no distress, appears at stated age Derm: warm, dry Head: atraumatic, normocephalic, symmetric Eyes: EOMI, no lid lag, anicteric sclera Mouth: no lip lesion, mucus membranes moist Cardiovascular: S1-S2 normal with regular rate and rhythm. No murmurs, gallops, or rubs noted. Posterior tibial pulses palpated bilaterally. Cap refill less than 2 seconds. Lungs: Respirations even, regular, and unlabored on room air. Lungs clear to auscultation bilaterally with no wheezes, rhonchi, or rales noted. No accessory muscle usage. Abdominal: Obese abdomen, soft, nontender to palpation, no guarding, no appreciable organomegaly Ext: no gross muscle atrophy, no edema, no contractures Neuro: GCS 15. Speech clear. CN II-XI grossly intact, no focal neuro deficits Psych: Alert, oriented, appropriate affect Assessment and Plan of Care: Chest pain with elevated troponins in patient with history of CAD with triple b ypass and recent cardiac stenting -EKG completed showing normal sinus rhythm and 92 bpm with T-wave inversion in leads V2 through V6 which is unchanged from previous EKG obtained on 12/03/20. -Troponin was slightly elevated at 0.061. -Elevation in troponin possibly secondary to recent cardiac catheterization versus acute coronary event. -Cardiology consulted -Telemetry monitoring -Trend troponins -Cardiac diet, likely nothing by mouth at midnight for possible cardiac cath -Continuation of heparin infusion pharmacy to dose -Continuation of daily Aspirin, atorvastatin, atenolol, benazepril, Imdur and when necessary nitro. Hypertension -Monitor vital signs and continue daily medication management. Hyperlipidemia -Continue daily medication management with atorvastatin. CODE STATUS: Full code DVT prophylaxis: heparin Discussed with: patient, RN, and patient's at bedside. Anticipated discharge date: clinical course to determine Anticipated discharge place: home A total of 45 minutes was spent on the care of this complex patient more than 50% of the time was spent in counseling and care coordination. Past Medical History Past Medical History: Coronary Artery Disease (CAD), Chest Pain / Angina, Diabetes Mellitus, GERD/Reflux, Hyperlipidemia, Sleep Apnea/CPAP/BIPAP Additional Past Medical History / Comment(s): . History of Any Multi-Drug Resistant Organisms: None Reported Past Surgical History: Coronary Bypass/CABG, Heart Catheterization, Heart Catheterization With Stent, Orthopedic Surgery Additional Past Surgical History / Comment(s): spouse unsure how many stents, 1997, 1998 cardiac caths, 1998- 3 vessel CABG, arthroscopy rt knee, Past Anesthesia/Blood Transfusion Reactions: Motion Sickness Date of Last Stent Placement:: 01/21/16 Past Psychological History: No Psychological Hx Reported Smoking Status: Former smoker Past Alcohol Use History: None Reported Past Drug Use History: None Reported - Past Family History Father Family Medical History: Myocardial Infarction (PA) Additional Family Medical History / Comment(s): Father of a PA at the age of 52 yrs. Mother Family Medical History: Coronary Artery Disease (CAD), Diabetes Mellitus Additional Family Medical History / Comment(s): CABG Medications and Allergies Home Medications Medication Instructions Recorded Confirmed Type Esomeprazole Magnesium [NexIUM] 40 mg PO DAILY 01/21/16 12/07/20 History Ubidecarenone [Co Q-10] 100 mg PO DAILY 01/21/16 12/07/20 History atenoloL [Tenormin] 25 mg PO HS 01/21/16 12/07/20 History Clopidogrel [Plavix] 75 mg PO DAILY #90 tab 01/22/16 12/07/20 Rx Nitroglycerin Sl Tabs [Nitrostat] 0.4 mg SUBLINGUAL Q5M PRN #60 tab 01/22/16 12/07/20 Rx Benazepril HCl 5 mg PO DAILY 02/14/16 12/07/20 History Empagliflozin [Jardiance] 10 mg PO DAILY 11/29/20 12/07/20 History Glimepiride [Amaryl] 1 mg PO HS 11/29/20 12/07/20 History Rosuvastatin Calcium [Crestor] 40 mg PO HS 11/29/20 12/07/20 History Aspirin EC [Ecotrin Low Dose] 81 mg PO DAILY 12/07/20 12/07/20 History Calcium Carbonate [Tums] 500 mg PO QID PRN chew 12/07/20 Rx Isosorbide Mononitrate ER [Imdur] 60 mg PO DAILY 12/07/20 12/07/20 History Liraglutide [Victoza 3-Josh] 1.8 mg SQ DAILY 12/07/20 12/07/20 History Pioglitazone [Actos] 15 mg PO DAILY 12/07/20 12/07/20 History Ranolazine [Ranolazine ER] 500 mg PO BID 12/07/20 12/07/20 History Super C Complex W/D3 & Zinc 1 tab PO DAILY 12/07/20 12/07/20 History atenoloL [Atenolol] 50 mg PO DAILY 12/07/20 12/07/20 History metFORMIN HCL [Glucophage] 1,000 mg PO BID 12/07/20 12/07/20 History Allergies Allergy/AdvReac Type Severity Reaction Status Date / Time No Known Allergies Allergy Verified 12/07/20 11:08 Physical Exam Vitals: Vital Signs Temp Pulse Resp BP Pulse Ox 12/07/20 12:18 86 18 113/66 12/07/20 11:16 88 18 120/71 96 12/07/20 09:48 98.1 F 96 16 95/60 99 Intake and Output 12/06/20 12/07/20 12/07/20 22:59 06:59 14:59 Intake Total 12.999 Balance 12.999 Intake: Intake, IV Titration 12.999 Amount Heparin Sod,Pork in 0.45% 12.999 NaCl 25,000 unit In 0.45 % NaCl 1 250ml.bag @ 8. 998 UNITS/KG/HR 9.999 mls /hr IV .Q24H [facility] Rx#: [id number] Other: Weight 111.13 kg Results CBC & Chem 7: 12/07/20 10:16 12/07/20 10:16 Labs: Abnormal Lab Results - Last 24 Hours (Table) 12/07/20 12/07/20 Range/Units 10:16 10:16 Glucose 107 H (74-99) mg/dL Troponin I 0.061 H* (0.000-0.034) ng/mL <Kelly Li - Last Filed: 12/07/20 18:09> Physical Exam Osteopathic Statement: *. No significant issues noted on an osteopathic structural exam other than those noted in the History and Physical/Consult. Vitals: Vital Signs Temp Pulse Pulse Resp BP BP Pulse Ox 12/07/20 16:25 85 20 131/74 97 12/07/20 15:55 83 16 125/65 98 12/07/20 15:25 97.5 F L 86 16 122/70 97 12/07/20 14:55 91 16 119/71 97 12/07/20 14:40 90 16 128/66 98 12/07/20 14:15 20 12/07/20 12:18 86 18 113/66 12/07/20 11:16 88 18 120/71 96 12/07/20 09:48 98.1 F 96 16 95/60 99 Intake and Output 12/07/20 12/07/20 12/07/20 06:59 14:59 22:59 Intake Total 162.999 300 Balance 162.999 300 Intake: IV 150 300 Sodium Chloride 0.9% 1, 300 000 ml @ 75 mls/hr IV . [id number] [facility] Rx#:[id number] Intake, IV Titration 12.999 Amount Heparin Sod,Pork in 0.45% 12.999 NaCl 25,000 unit In 0.45 % NaCl 1 250ml.bag @ 8. 998 UNITS/KG/HR 9.999 mls /hr IV .Q24H [facility] Rx#: [id number] Other: Weight 111.13 kg 111.13 kg Results CBC & Chem 7: 12/07/20 10:16 12/07/20 10:16 Labs: Abnormal Lab Results - Last 24 Hours (Table) 12/07/20 12/07/20 12/07/20 Range/Units 10:16 10:16 15:33 Glucose 107 H (74-99) mg/dL Troponin I 0.061 H* 0.066 H* (0.000-0.034) ng/mL Assessment and Plan Assessment: Patient seen and examined independently. Patient was also seen by Ashok José NP and case was discussed. I am in agreement with subjective, physical exam, assessment and plan as written above and amended below. To review subjective findings and physical exam from same date please refer to discharge summary
[2020-12-07] MEDS ORDERED: PANTOPRAZOLE 40 MG/10 ML VIAL IVP ONE (15:25)
[2020-12-07 15:29] VITALS: TEMP 97.5
[2020-12-07] MEDS: CALCIUM CARBONATE 500 MG CHEWABLE PO PRN ×2 (15:34→18:16)
--- NOTE | 2020-12-07 15:57 | P.DS ---
<Ashok José - Last Filed: 12/07/20 15:53> Providers Expected date of discharge: 12/07/20 Hospital Course: Discharge Diagnosis: Atypical Chest pain with elevated troponins in patient with history of CAD with triple bypass and recent cardiac stenting, acute coronary event ruled out Hypertension Hyperlipidemia Diabetes mellitus type 2 Hospital Course: Patient is a 60-year-old male with a past medical history of hypertension, hyperlipidemia, type II mgy-[id number] diabetes mellitus and CAD with previous triple bypass in 1998 underwent stenting of left circumflex and left main on Thursday12/03/[address] Rodney. Patient reports status post cardiac catheterization and he felt well but reports that he began experiencing intermittent chest pain on Thursday and persisted to wax and wane throughout the next 3 days. Patient states this morning the pain seemed a little different or worse so he took a nitro which seemed to improve the pain so he took a second nitro which again seemed to improve the pain. Patient reports he called the investment accounting clerk's office and was instructed to come straight to the emergency department. In the emergency department patient was seen and fully evaluated. Chest x-ray completed showing cardiomegaly with central pulmonary vascular congestion. EKG completed showing normal sinus rhythm and 92 bpm with T-wave inversion in leads V2 through V6 which is unchanged from previous EKG obtained on 12/03/20. Troponin was slightly elevated at 0.061. The remainder of the labs including CBC, BMP, coags, and liver profile were unremarkable. Patient started on heparin infusion and was admitted under our services with consultation to cardiology. Patient was taken to cardiac skilled laborer to rule out in-stent restenosis. Cardiac cath clear requiring no interventions. Acute coronary event was ruled out. Patient is cleared from cardiac standpoint for discharge home after 8:30 PM tonight. Discharge orders placed with these restrictions. Patient to follow up outpatient with PCP and cardiology. Please refer to H&P written earlier today to review a full detailed physical exam. A total of 45 minutes of time were spent preparing this complex discharge summary. Patient Condition at Discharge: Stable Plan - Discharge Summary New Discharge Prescriptions: New Calcium Carbonate [Tums] 500 mg PO QID PRN chew PRN Reason: Heartburn Continue atenoloL [Tenormin] 25 mg PO HS Esomeprazole Magnesium [NexIUM] 40 mg PO DAILY Ubidecarenone [Co Q-10] 100 mg PO DAILY Clopidogrel [Plavix] 75 mg PO DAILY #90 tab Nitroglycerin Sl Tabs [Nitrostat] 0.4 mg SUBLINGUAL Q5M PRN #60 tab PRN Reason: Chest Pain Benazepril HCl 5 mg PO DAILY Empagliflozin [Jardiance] 10 mg PO DAILY Rosuvastatin Calcium [Crestor] 40 mg PO HS Liraglutide [Victoza 3-Josh] 1.8 mg SQ DAILY Isosorbide Mononitrate ER [Imdur] 60 mg PO DAILY atenoloL [Atenolol] 50 mg PO DAILY Super C Complex W/D3 & Zinc 1 tab PO DAILY Ranolazine [Ranolazine ER] 500 mg PO BID Pioglitazone [Actos] 15 mg PO DAILY Aspirin EC [Ecotrin Low Dose] 81 mg PO DAILY Glimepiride [Amaryl] 1 mg PO HS metFORMIN HCL [Glucophage] 1,000 mg PO BID Discharge Medication List Esomeprazole Magnesium [NexIUM] 40 mg PO DAILY 01/21/16 [History] Ubidecarenone [Co Q-10] 100 mg PO DAILY 01/21/16 [History] atenoloL [Tenormin] 25 mg PO HS 01/21/16 [History] Clopidogrel [Plavix] 75 mg PO DAILY #90 tab 01/22/16 [Rx] Nitroglycerin Sl Tabs [Nitrostat] 0.4 mg SUBLINGUAL Q5M PRN #60 tab 01/22/16 [Rx] Benazepril HCl 5 mg PO DAILY 02/14/16 [History] Empagliflozin [Jardiance] 10 mg PO DAILY 11/29/20 [History] Glimepiride [Amaryl] 1 mg PO HS 11/29/20 [History] Rosuvastatin Calcium [Crestor] 40 mg PO HS 11/29/20 [History] Aspirin EC [Ecotrin Low Dose] 81 mg PO DAILY 12/07/20 [History] Calcium Carbonate [Tums] 500 mg PO QID PRN chew 12/07/20 [Rx] Isosorbide Mononitrate ER [Imdur] 60 mg PO DAILY 12/07/20 [History] Liraglutide [Victoza 3-Josh] 1.8 mg SQ DAILY 12/07/20 [History] Pioglitazone [Actos] 15 mg PO DAILY 12/07/20 [History] Ranolazine [Ranolazine ER] 500 mg PO BID 12/07/20 [History] Super C Complex W/D3 & Zinc 1 tab PO DAILY 12/07/20 [History] atenoloL [Atenolol] 50 mg PO DAILY 12/07/20 [History] metFORMIN HCL [Glucophage] 1,000 mg PO BID 12/07/20 [History] Follow up Appointment(s)/Referral(s): Thao Khan MD [Primary Care Provider] - 1-2 days Sam Rodney MD [STAFF PHYSICIAN] - 1 Week Activity/Diet/Wound Care/Special Instructions: Activity: As tolerated Diet: Heart healthy and carb consistent diet Wound Care: Please refer to postcardiac catheterization site care on discharge instructions. Monitor for signs of redness, swelling, or bleeding and is seen and notify investment accounting clerk or return to hospital immediately. Special Instructions: It is very important for you to take her medications as directed. He will need to follow up outpatient with both her primary doctor Dr. Khan as well as your investment accounting clerk Dr. Ferreira. Thank you for allowing us to participate in your care, it was a pleasure having you for our patient! <Kelly Li - Last Filed: 12/07/20 18:07> Providers Date of admission: 12/07/20 11:32 Attending physician: Kelly Li DO Consults: 12/07/20 11:25 Consult Physician Urgent Consulting Provider: Sam Rodney Consult Reason/Comments: [place] Do you want consulting provider notified?: Yes Primary care physician: Thao Khan MD Hospital Course: Patient seen and examined independently. Patient was also seen by Ashok José NP and case was discussed. I am in agreement with discharge diagnosis, hospital course, and physical exam as written above and amended below. Patient believes he is having some acid reflux now that his cath has been negative. He is going to try some IV Protonix and a dose of Tums. With the daughter present at bedside and all questions answered. He states that he has been having some epigastric pain as well as nausea and possible early satiety. He is unsure if it is related to meals, it is not related to positioning. He does already take Nexium. He also did just restart metformin after his cardiac cath. General: non toxic, no distress, appears at stated age Derm: warm, dry Head: atraumatic, normocephalic, symmetric Eyes: EOMI, no lid lag, anicteric sclera Mouth: no lip lesion, mucus membranes moist Cardiovascular: S1S2 reg, no murmur, positive posterior tibial pulse bilateral, Lungs: CTA bilateral, no rhonchi, no rales , no accessory muscle use Abdominal: soft, nontender to palpation, no guarding, no appreciable organomegaly Ext: no gross muscle atrophy, no edema, no contractures Neuro: CN II-XI grossly intact, no focal neuro deficits Psych: Alert, oriented, appropriate affect
--- NOTE | 2020-12-07 17:03 | CC ---
CARDIAC CATHETERIZATION REPORT DATE OF SERVICE: December 07, 2020. PERFORMING PHYSICIAN: Sam Rodney MD. PROCEDURE PERFORMED: 1. Selective left coronary angiogram. 2. SVG to RCA angiogram. INDICATION: This is a 60-year-old gentleman who is known to have coronary artery disease and known severe triple-vessel CAD, who was seen recently in the office where he was experiencing symptoms of chest discomfort concerning for angina. He underwent a heart catheterization and was found to have patent ECHAVARRIA to LAD and patent graft to the RCA with severe disease involving unprotected left circumflex coronary artery. He underwent stenting of the left circumflex at that point, and he was discharged home in stable medical condition. He presented back to the hospital complaining of chest discomfort. Because of that, a heart catheterization was advised. APPROACH: Left common femoral artery. COMPLICATION: None. LEVEL OF SEDATION: Moderate with sedation length of 30 minutes. PROCEDURE DESCRIPTION: After obtaining an informed consent, the patient was brought to the cardiac earthmoving labourer. The left common femoral artery was cannulated using micropuncture technique, the micropuncture wire passed easily, then I placed a 6-[place] sheath in the left common femoral artery. I did after that selective left coronary angiogram using JL4 catheter and selective SVG to RCA angiogram using Srikanth Landaverde catheter. The procedure was completed without any complication. SELECTIVE CORONARY ANGIOGRAM: 1. The left main appeared to be angiographically normal. The distal left main is stented and the stent is patent. 2. The LAD is 100% occluded, but the ECHAVARRIA to LAD is patent from prior heart catheterization. 3. The left circumflex appeared to be patent with the stent seems to be widely patent with good flow, JAUN-3 flow in it. 4. The graft to RCA is patent as well. CONCLUSION: 1. Patent stent in the distal left main and the proximal left circumflex coronary artery. 2. Patent SVG to RCA. POSTPROCEDURE MANAGEMENT: 1. Medical treatment. 2. Follow up with the patient. MMODL / IJN: [id number] /
[2020-12-07 17:23] LABS: Glucose,Whole Blood 84 mg/dL (75-99)
[2020-12-07 18:13] VITALS: PULSE 87; RESP 16
[2020-12-07 18:15] VITALS: BP 118/68
[2020-12-07] MEDS ORDERED: RANOLAZINE 500 MG TAB.ER.12H PO SCH (21:00)
[2020-12-07] MEDS ORDERED: atenoloL 25 MG TAB PO SCH (21:00)
[2020-12-08] MEDS ORDERED: HEPARIN SODIUM,PORCINE 2,500 UNIT in SODIUM CHLORIDE 0.9% 250 ML IRRIGATION PRN (07:00)
[2020-12-08] MEDS ORDERED: HEPARIN SODIUM,PORCINE 10,000 UNIT in SODIUM CHLORIDE 0.9% 1,000 ML IRRIGATION PRN (07:00)
[2020-12-08] MEDS ORDERED: atenoloL 50 MG TAB PO SCH (09:00)
[2020-12-08] MEDS ORDERED: ASPIRIN 325 MG TAB PO SCH (09:00)
[2020-12-08] MEDS ORDERED: CLOPIDOGREL 75 MG TAB PO SCH (09:00)
[2020-12-08] MEDS ORDERED: ISOSORBIDE MONONITRATE ER 60 MG TAB.ER.24H PO SCH (09:00)
[2020-12-08] MEDS ORDERED: lisinopriL 5 MG TAB PO SCH (09:00)
== END 2020-12-07 21:15 ==
LOC: EC 09:42 → 3SCARD 11:32 → 6NMEDSUR 14:02
PROVIDERS: ADMIT Internal Medicine; ATTEND Internal Medicine
DX: R07.89 Other chest pain (principal); R79.89 Other specified abnormal findings of blood chemistry; I11.9 Hypertensive heart disease without heart failure; I25.10 Atherosclerotic heart disease of native coronary artery without angina pectoris; E11.9 Type 2 diabetes mellitus without complications; I07.1 Rheumatic tricuspid insufficiency; E78.5 Hyperlipidemia, unspecified; G47.30 Sleep apnea, unspecified; K21.9 Gastro-esophageal reflux disease without esophagitis; R10.13 Epigastric pain; R11.0 Nausea; E66.9 Obesity, unspecified; Z68.38 Body mass index [BMI] 38.0-38.9, adult; Z79.82 Long term (current) use of aspirin; Z79.84 Long term (current) use of oral hypoglycemic drugs; Z79.899 Other long term (current) drug therapy; Z79.02 Long term (current) use of antithrombotics/antiplatelets; Z95.1 Presence of aortocoronary bypass graft; Z95.5 Presence of coronary angioplasty implant and graft; Z98.890 Other specified postprocedural states; Z87.891 Personal history of nicotine dependence; Z82.49 Family history of ischemic heart disease and other diseases of the circulatory system; Z83.3 Family history of diabetes mellitus
CPT/HCPCS: 96376; 96365; 99291; 36415; 93005; 80053; 83735; 84484; 85025; 85610; 85730; 71046; G0378 ×2; C1894; C1769 ×2; J2250; J2001; J1644 ×2; C9113; Q9967; 93455

== ENCOUNTER 2020-12-18 20:03 | Emergency (ER) | payer BC ==
[2020-12-18 20:09] VITALS: RESP 16; TEMP 97
[2020-12-18] MEDS ORDERED: DIPH,PERTUS(ACELL)TETVAC-LF 0.5 ML VIAL IM ONE (20:35)
[2020-12-18] MEDS ORDERED: ACETAMINOPHEN TAB 500 MG TAB PO STA (20:35)
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
--- NOTE | 2020-12-18 21:32 | XR ---
Result: Clinical History: Pain. Comparison: None available. Technique: 3 views of the right shoulder. Findings: The bone mineralization is appropriate for age. No acute fracture or dislocation is seen. There are mild degenerative changes of the visualized joint spaces. The visualized lung is clear. Impression: No acute osseous abnormality.
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
[2020-12-18 22:34] VITALS: BP 138/74; PULSE 78
== END 2020-12-18 22:37 | disposition home or self-care (01) ==
LOC: EC 20:03
DX: S00.03XA Contusion of scalp, initial encounter (principal); S40.211A Abrasion of right shoulder, initial encounter; W18.40XA Slipping, tripping and stumbling without falling, unspecified, initial encounter; I25.10 Atherosclerotic heart disease of native coronary artery without angina pectoris; E11.9 Type 2 diabetes mellitus without complications; K21.9 Gastro-esophageal reflux disease without esophagitis; E78.5 Hyperlipidemia, unspecified; G47.33 Obstructive sleep apnea (adult) (pediatric); Z99.81 Dependence on supplemental oxygen; Z95.5 Presence of coronary angioplasty implant and graft; Z95.1 Presence of aortocoronary bypass graft; Z87.891 Personal history of nicotine dependence; Z23 Encounter for immunization
CPT/HCPCS: 70450; 72125; 90471; 90715; 99284

== ENCOUNTER → 2021-06-20 | Outpatient (CLI) | payer BC | END | disposition home or self-care (01) | LOC: LABPAT 09:53 | PROVIDERS: ATTEND Surgery Plastic and Reconstructive Surgery | DX: Z01.812 Encounter for preprocedural laboratory examination (principal); Z20.822 Contact with and (suspected) exposure to COVID-19 | CPT/HCPCS: U0003; C9803 ==

== ENCOUNTER 2021-07-24 07:41 | Day surgery (SDC) | payer BC ==
[2021-07-08 13:07] VITALS: BMI 38.5
[~2021-07-24 07:41] MED LIST changes: -ALPRAZolam 0.25 MG TAB PO PRN; -ALPRAZolam 0.5 MG TAB PO PRN; +LACTATED RINGERS 1,000 ML IV SCH; -NITROGLYCERIN SL TABS 0.4 MG TAB SUBLINGUAL PRN; -SODIUM CHLORIDE 0.9% 1,000 ML in EMPTY BAG 1 BAG IV ONE
[2021-07-24 08:06] VITALS: RESP 16; TEMP 96.4
[2021-07-24 08:18] LABS: Glucose,Whole Blood 101 mg/dL (75-99)
[2021-07-24] MEDS ORDERED: LIDOCAINE 1% INJ 10MG/ML (20 ML MDV) ONE (08:44)
[2021-07-24] MEDS ORDERED: PROPOFOL 10 MG/ML 20 ML VIAL IV ONE (08:44)
--- NOTE | 2021-07-24 08:51 | P.GSHP ---
History of Present Illness H&P Date: 07/24/21 CHIEF COMPLAINT: Colon screen HISTORY OF PRESENT ILLNESS: The patient is a 60-year-old male who presents for colon screen. Last colonoscopy was at the age of 49. Patient presents for consultation. Additionally, patient is on Plavix and aspirin. Per seam checker, he had not discontinued his medication. Patient reports COVID Vaccinated and having a recent booster. Lower endoscopy was offered for further evaluation and management. PAST MEDICAL HISTORY: Please see list. PAST SURGICAL HISTORY: Please see list. MEDICATIONS: Please see list. ALLERGIES: Please see list. SOCIAL HISTORY: No illicit drug use FAMILY HISTORY: No reports of Crohn disease or ulcerative colitis. REVIEW OF ORGAN SYSTEMS: CONSTITUTIONAL: No reports of fevers or chills. PHYSICAL EXAM: VITAL SIGNS: Stable GENERAL: Well-developed pleasant in no acute distress. HEENT: No scleral icterus. Extraocular movements grossly intact. Moist buccal mucosa. NECK: Supple without lymphadenopathy. CHEST: Unlabored respirations. Equal bilateral excursions. CARDIOVASCULAR: Regular rate and rhythm. Distal 2+ pulses. ABDOMEN: Soft, nontender, nondistended. MUSCULOSKELETAL: No clubbing, cyanosis, or edema. ASSESSMENT: 1. Colon screen. PLAN: 1. Patient is extremely high risk for colonoscopy with polypectomy. Patient was made aware that no biopsies will be obtained as he is on antiplatelet therapy with high risk of bleeding. Any polyps identified on this exam warrants future colonoscopy with polypectomy at a more recent timeframe. Past Medical History Past Medical History: Coronary Artery Disease (CAD), Chest Pain / Angina, Diabetes Mellitus, GERD/Reflux, Hyperlipidemia, Sleep Apnea/CPAP/BIPAP Additional Past Medical History / Comment(s): USES BI-PAP MACHINE, HX COLON POLYPS. History of Any Multi-Drug Resistant Organisms: None Reported Past Surgical History: Coronary Bypass/CABG, Heart Catheterization, Heart Catheterization With Stent, Orthopedic Surgery Additional Past Surgical History / Comment(s): Unsure how many stents, 1997, 1998, 12/03/20 cardiac caths, 3 vessel CABG (1998), right knee arthroscopy. Past Anesthesia/Blood Transfusion Reactions: Motion Sickness Date of Last Stent Placement:: 12/03/20 Past Psychological History: No Psychological Hx Reported Smoking Status: Former smoker Past Alcohol Use History: None Reported Additional Past Alcohol Use History / Comment(s): Started smoking in 1979 and quit in 1995, 1-2 ppd. Past Drug Use History: None Reported - Past Family History Father Family Medical History: Myocardial Infarction ([place]) Additional Family Medical History / Comment(s): Father of a [place] at the age of 52 yrs. Mother Family Medical History: Coronary Artery Disease (CAD), Diabetes Mellitus Additional Family Medical History / Comment(s): CABG. Medications and Allergies Home Medications Medication Instructions Recorded Confirmed Type Esomeprazole Magnesium [NexIUM] 40 mg PO DAILY 01/21/16 07/24/21 History Ubidecarenone [Co Q-10] 100 mg PO DAILY 01/21/16 07/24/21 History atenoloL [Tenormin] 25 mg PO HS 01/21/16 07/24/21 History Clopidogrel [Plavix] 75 mg PO DAILY #90 tab 01/22/16 07/24/21 Rx Nitroglycerin Sl Tabs [Nitrostat] 0.4 mg SUBLINGUAL Q5M PRN #60 tab 01/22/16 07/24/21 Rx Benazepril HCl 5 mg PO QAM 02/14/16 07/24/21 History Empagliflozin [Jardiance] 10 mg PO DAILY 11/29/20 07/24/21 History Glimepiride [Amaryl] 1 mg PO HS 11/29/20 07/24/21 History Rosuvastatin Calcium [Crestor] 40 mg PO HS 11/29/20 07/24/21 History Aspirin EC [Ecotrin Low Dose] 81 mg PO DAILY 12/07/20 07/24/21 History Isosorbide Mononitrate ER [Imdur] 60 mg PO QAM 12/07/20 07/24/21 History Liraglutide [Victoza 3-Josh] 1.8 mg SQ DAILY 12/07/20 07/24/21 History Ranolazine [Ranolazine ER] 500 mg PO BID 12/07/20 07/24/21 History atenoloL 50 mg PO QAM 12/07/20 07/24/21 History metFORMIN HCL [Glucophage] 1,000 mg PO BID 12/07/20 07/24/21 History Allergies Allergy/AdvReac Type Severity Reaction Status Date / Time No Known Allergies Allergy Verified 07/24/21 08:07 Surgical - Exam Vital Signs Temp Pulse Resp BP Pulse Ox 96.4 F L 99 16 137/75 96 07/24/21 08:05 07/24/21 08:05 07/24/21 08:05 07/24/21 08:05 07/24/21 08:05 Results - Labs Abnormal Lab Results - Last 24 Hours (Table) 07/24/21 Range/Units 08:13 POC Glucose (mg/dL) 101 H (75-99) mg/dL
[2021-07-24 09:21] VITALS: BP 143/83; PULSE 78
--- NOTE | 2021-07-24 09:25 | P.PCN ---
Date of Procedure: 07/24/21 Description of Procedure: PREOPERATIVE DIAGNOSIS: Colonoscopy screening Chronic antiplatelet therapy Ischemic cardiomyopathy Antiplatelet therapy Morbid obesity due to excess calories, BMI 39.3 POSTOPERATIVE DIAGNOSIS: Tubular adenoma ascending colon Tubular adenoma ascending colon polyp OPERATION: Colonoscopy to the ileocecal valve and appendiceal orifice, cecum SURGEON: Kenia Kelley MD. ANESTHESIA: MAC. INDICATIONS: The patient is an 60-year-old male who presents for colonoscopy screening. Last colonoscopy at age 49, over 10 years ago. Benefits and risks were described and informed consent was obtained. DESCRIPTION OF PROCEDURE: The patient had undergone Sutab prep. The patient had been brought into the operating room and laid in the left lateral decubitus position. After adequate intravenous sedation, the rectum was examined with 2% lidocaine jelly. The prostate was unremarkable. External hemorrhoids were encountered. The rectal tone was within normal limits. No lesions were palpated in the rectal vault. An Olympus colonoscope was advanced until the cecum, ileocecal valve and appendiceal orifice were clearly viewed. The prep was excellent. No large sigmoid diverticulosis was encountered. Colonic polyps were found but not removed due to active Plavix and aspirin use. No evidence of focal colitis was found. Retroflexion of the scope demonstrated grade 2 internal hemorrhoids without active bleeding or inflammation. The colon was desufflated. The patient had tolerated the procedure well. Withdrawal time was over 6 minutes. FINDINGS: Aronchick preparation quality scale 1 (1-5) Internal hemorrhoids, grade 2 External hemorrhoids, grade 2. No arteriovenous malformations. No large sigmoid diverticulosis Presence of 2 polyps: - Ascending colon polyp, 4 mm - unable to retrieve due to antiplatelet therapy - Descending colon polyp at 40 cm from the anal verge, 5 mm in size - unable to retrieve due to antiplatelet therapy No focal colitis. RECOMMENDATIONS: 1. Will need polypectomy one year following stent placement with holding of antiplatelet therapy, December 2021 Plan - Discharge Summary Discharge Rx Participant: No New Discharge Prescriptions: Continue atenoloL [Tenormin] 25 mg PO HS Esomeprazole Magnesium [NexIUM] 40 mg PO DAILY Ubidecarenone [Co Q-10] 100 mg PO DAILY Clopidogrel [Plavix] 75 mg PO DAILY #90 tab Nitroglycerin Sl Tabs [Nitrostat] 0.4 mg SUBLINGUAL Q5M PRN #60 tab PRN Reason: Chest Pain Benazepril HCl 5 mg PO QAM Empagliflozin [Jardiance] 10 mg PO DAILY Rosuvastatin Calcium [Crestor] 40 mg PO HS Liraglutide [Victoza 3-Josh] 1.8 mg SQ DAILY Isosorbide Mononitrate ER [Imdur] 60 mg PO QAM atenoloL 50 mg PO QAM Ranolazine [Ranolazine ER] 500 mg PO BID Aspirin EC [Ecotrin Low Dose] 81 mg PO DAILY Glimepiride [Amaryl] 1 mg PO HS metFORMIN HCL [Glucophage] 1,000 mg PO BID Discharge Medication List Esomeprazole Magnesium [NexIUM] 40 mg PO DAILY 01/21/16 [History] Ubidecarenone [Co Q-10] 100 mg PO DAILY 01/21/16 [History] atenoloL [Tenormin] 25 mg PO HS 01/21/16 [History] Clopidogrel [Plavix] 75 mg PO DAILY #90 tab 01/22/16 [Rx] Nitroglycerin Sl Tabs [Nitrostat] 0.4 mg SUBLINGUAL Q5M PRN #60 tab 01/22/16 [Rx] Benazepril HCl 5 mg PO QAM 02/14/16 [History] Empagliflozin [Jardiance] 10 mg PO DAILY 11/29/20 [History] Glimepiride [Amaryl] 1 mg PO HS 11/29/20 [History] Rosuvastatin Calcium [Crestor] 40 mg PO HS 11/29/20 [History] Aspirin EC [Ecotrin Low Dose] 81 mg PO DAILY 12/07/20 [History] Isosorbide Mononitrate ER [Imdur] 60 mg PO QAM 12/07/20 [History] Liraglutide [Victoza 3-Josh] 1.8 mg SQ DAILY 12/07/20 [History] Ranolazine [Ranolazine ER] 500 mg PO BID 12/07/20 [History] atenoloL 50 mg PO QAM 12/07/20 [History] metFORMIN HCL [Glucophage] 1,000 mg PO BID 12/07/20 [History] Follow up Appointment(s)/Referral(s): Kenia Kelley MD [STAFF PHYSICIAN] - 07/30/21 Patient Instructions/Handouts: Colorectal Polyps (GEN), *Surgery [facility] - (Anesthesia) Endoscopy Discharge Instructions Activity/Diet/Wound Care/Special Instructions: Limited repeat colonoscopy for polypectomy one year after initial stent. Discharge Disposition: HOME SELF-CARE
== END 2021-07-24 09:48 | disposition home or self-care (01) ==
LOC: ORWHC2ENDO 07:41
PROVIDERS: ATTEND Surgery Plastic and Reconstructive Surgery
DX: Z12.11 Encounter for screening for malignant neoplasm of colon (principal); D12.2 Benign neoplasm of ascending colon; Z79.02 Long term (current) use of antithrombotics/antiplatelets; Z86.010 Personal history of colon polyps; K21.9 Gastro-esophageal reflux disease without esophagitis; I25.5 Ischemic cardiomyopathy; E66.01 Morbid (severe) obesity due to excess calories; Z68.39 Body mass index [BMI] 39.0-39.9, adult; I25.10 Atherosclerotic heart disease of native coronary artery without angina pectoris; E11.9 Type 2 diabetes mellitus without complications; G47.30 Sleep apnea, unspecified; E78.5 Hyperlipidemia, unspecified; Z95.1 Presence of aortocoronary bypass graft; Z95.5 Presence of coronary angioplasty implant and graft; Z98.890 Other specified postprocedural states; Z87.891 Personal history of nicotine dependence; Z82.49 Family history of ischemic heart disease and other diseases of the circulatory system; Z79.899 Other long term (current) drug therapy; Z79.84 Long term (current) use of oral hypoglycemic drugs; Z79.82 Long term (current) use of aspirin
CPT/HCPCS: J2001; J2704; G0105; 45378

== ENCOUNTER 2022-06-19 07:05 | Day surgery (SDC) | payer BC ==
[2022-06-17 09:00] VITALS: BMI 38.0
[2022-06-19] MEDS ORDERED: LACTATED RINGERS 1,000 ML IV ONE (07:19)
[2022-06-19 07:21] VITALS: RESP 16; TEMP 97
[2022-06-19 07:37] LABS: Glucose,Whole Blood 129 mg/dL (70-110)
[2022-06-19] MEDS ORDERED: LIDOCAINE 2% INJ 20 MG/ML (2 ML VIAL) ONE (07:47)
[2022-06-19] MEDS ORDERED: PROPOFOL 10 MG/ML 20 ML VIAL IV ONE (07:47)
[2022-06-19] MEDS ORDERED: ONDANSETRON 4 MG/2 ML VIAL IVP PRN (08:01)
[2022-06-19] MEDS ORDERED: LACTATED RINGERS 1,000 ML IV SCH (08:01)
[2022-06-19] MEDS ORDERED: LIDOCAINE 1% (10MG/ML) FOR IV START INTRADERMA PRN (08:01)
--- NOTE | 2022-06-19 08:03 | P.GSHP ---
History of Present Illness H&P Date: 06/19/22 Chief Complaint: Screening colonoscopy This is a 61-year-old male presents today for screening colonoscopy. Patient has had previous colonoscopy were female had a hyperplastic polyp. Patient denies any significant GI complaints. Past Medical History Past Medical History: Coronary Artery Disease (CAD), Chest Pain / Angina, Diabetes Mellitus, GERD/Reflux, Hyperlipidemia, Hypertension, Osteoarthritis (OA), Sleep Apnea/CPAP/BIPAP Additional Past Medical History / Comment(s): USES BI-PAP MACHINE, HX COLON POLYPS. History of Any Multi-Drug Resistant Organisms: None Reported Past Surgical History: Coronary Bypass/CABG, Heart Catheterization, Heart Catheterization With Stent, Orthopedic Surgery Additional Past Surgical History / Comment(s): Unsure how many stents, 1997, 1998, 12/03/20 cardiac caths, 3 vessel CABG (1998), right knee arthroscopy. Past Anesthesia/Blood Transfusion Reactions: Motion Sickness Date of Last Stent Placement:: 12/03/20 Smoking Status: Former smoker - Past Family History Father Family Medical History: Myocardial Infarction (WA) Additional Family Medical History / Comment(s): Father of a [place] at the age of 52 yrs. Mother Family Medical History: Coronary Artery Disease (CAD), Diabetes Mellitus Additional Family Medical History / Comment(s): CABG. Medications and Allergies Home Medications Medication Instructions Recorded Confirmed Type Esomeprazole Magnesium [NexIUM] 40 mg PO DAILY 01/21/16 06/19/22 History Ubidecarenone [Co Q-10] 100 mg PO DAILY 01/21/16 06/19/22 History atenoloL [Tenormin] 25 mg PO HS 01/21/16 06/19/22 History Clopidogrel [Plavix] 75 mg PO DAILY #90 tab 01/22/16 06/19/22 Rx Nitroglycerin Sl Tabs [Nitrostat] 0.4 mg SUBLINGUAL Q5M PRN #60 tab 01/22/16 06/19/22 Rx Benazepril HCl 5 mg PO QAM 02/14/16 06/19/22 History Empagliflozin [Jardiance] 10 mg PO DAILY 11/29/20 06/19/22 History Rosuvastatin Calcium [Crestor] 40 mg PO HS 11/29/20 06/19/22 History Aspirin EC [Ecotrin Low Dose] 81 mg PO DAILY 12/07/20 06/19/22 History Isosorbide Mononitrate ER [Imdur] 60 mg PO QAM 12/07/20 06/19/22 History Liraglutide [Victoza 3-Josh] 1.8 mg SQ DAILY 12/07/20 06/19/22 History Ranolazine [Ranolazine ER] 500 mg PO BID 12/07/20 06/19/22 History atenoloL 50 mg PO QAM 12/07/20 06/19/22 History metFORMIN HCL [Glucophage] 1,000 mg PO BID 12/07/20 06/19/22 History Allergies Allergy/AdvReac Type Severity Reaction Status Date / Time No Known Allergies Allergy Verified 06/19/22 07:23 Surgical - Exam Vital Signs Temp Pulse Resp BP Pulse Ox 97 F L 87 16 141/84 97 06/19/22 07:20 06/19/22 07:20 06/19/22 07:20 06/19/22 07:20 06/19/22 07:20 - General well developed, well nourished, no distress - Eyes PERRL - ENT normal pinna - Neck no masses - Respiratory normal expansion - Cardiovascular Rhythm: regular - Abdomen Abdomen: soft, non tender Results - Labs Abnormal Lab Results - Last 24 Hours (Table) 06/19/22 Range/Units 07:33 POC Glucose (mg/dL) 129 H (70-110) mg/dL Assessment and Plan Assessment: We'll perform screening colonoscopy.
--- NOTE | 2022-06-19 08:05 | P.OP ---
Date of Procedure: 06/19/22 Preoperative Diagnosis: Screening colonoscopy Postoperative Diagnosis: Normal colonoscopy Procedure(s) Performed: Colonoscopy Anesthesia: MAC Surgeon: Sid Feliz Pathology: none sent Condition: stable Disposition: PACU Description of Procedure: The patient's placed on the endoscopy table in the lateral position. He received IV sedation. Digital rectal exam performed. This revealed internal hemorrhoids. The prostate was symmetric without nodules. Flexible colonoscope was then placed patient anus and passed throughout the entire colon. The ileocecal valve was visualized. The cecum, ascending and transverse colon appeared normal. There were no polyps seen in this portion of colon. The scope is then brought back. In the descending and sigmoid colon there were no polyps seen. There was no evidence of any reticulosis in the sigmoid colon. Scope summer back the rectum and this appeared normal. Scope was withdrawn through the anus and internal hemorrhoids were noted. Scope was withdrawn for patient.
[2022-06-19 08:20] VITALS: BP 124/79; PULSE 87
== END 2022-06-19 08:41 | disposition home or self-care (01) ==
LOC: ORWHC2ENDO 07:05
PROVIDERS: ATTEND Surgery
DX: Z12.11 Encounter for screening for malignant neoplasm of colon (principal); K64.8 Other hemorrhoids; I25.10 Atherosclerotic heart disease of native coronary artery without angina pectoris; E11.9 Type 2 diabetes mellitus without complications; K63.5 Polyp of colon; K21.9 Gastro-esophageal reflux disease without esophagitis; E78.5 Hyperlipidemia, unspecified; I10 Essential (primary) hypertension; M19.90 Unspecified osteoarthritis, unspecified site; G47.30 Sleep apnea, unspecified; Z99.89 Dependence on other enabling machines and devices; Z95.5 Presence of coronary angioplasty implant and graft; Z98.890 Other specified postprocedural states; Z87.891 Personal history of nicotine dependence; Z82.49 Family history of ischemic heart disease and other diseases of the circulatory system; Z80.3 Family history of malignant neoplasm of breast; Z79.02 Long term (current) use of antithrombotics/antiplatelets; Z79.899 Other long term (current) drug therapy; Z79.84 Long term (current) use of oral hypoglycemic drugs; Z79.82 Long term (current) use of aspirin; Z86.010 Personal history of colon polyps
CPT/HCPCS: 45378; J2704; J2001

== ENCOUNTER → 2023-09-18 | Outpatient (CLI) | payer BC ==
[2023-09-18 16:03] LABS: HCT 42.9 % (39.6-50.0); HGB 13.5 g/dL (13.0-17.0); MCH 28.5 pg (27.0-32.0); MCHC 31.5 g/dL (32.0-37.0); MCV 90.5 FL (80.0-97.0); Mean Platelet Volume 11.1 FL (9.5-12.2); NRBC Per 100 WBC 0 X 10*3/uL (0.00-0.01); Platelet Count 196 X 10*3/uL (140-440); RBC 4.74 X 10*6/uL (4.40-5.60); RDW 14.1 % (11.5-14.5); WBC 6.46 X 10*3/uL (4.50-10.00)
[2023-09-18 18:47] LABS: ALT 22 U/L (10-49); AST 22 U/L (14-35); Albumin 4.6 g/dL (3.8-4.9); Albumin/Globulin Ratio 1.77 Ratio (1.60-3.17); Alkaline Phosphatase 69 U/L (41-126); BUN/Creat Ratio 15.91 Ratio (12.00-20.00); Blood Urea Nitrogen 17.5 mg/dL (9.0-27.0); Calcium 9.6 mg/dL (8.7-10.3); Carbon Dioxide 17.4 mmol/L (21.6-31.8); Chloride 107 mmol/L (96-109); Chol/HDL Ratio 2.54 Ratio; Globulin 2.6 g/dL (1.6-3.3); Glucose 91 mg/dL (70-110); LDL Cholesterol,Calculated 65.1 mg/dL (0.0-131.0); Potassium 4.8 mmol/L (3.5-5.5); Sodium 141 mmol/L (135-145); Total Bilirubin 0.5 mg/dL (0.3-1.2); Total Protein 7.2 g/dL (6.2-8.2)
== END | disposition home or self-care (01) ==
LOC: LABWHC1 11:55
PROVIDERS: ATTEND Internal Medicine Interventional Cardiology
DX: Z01.812 Encounter for preprocedural laboratory examination (principal); I13.0 Hypertensive heart and chronic kidney disease with heart failure and stage 1 through stage 4 chronic kidney disease, or unspecified chronic kidney disease; E11.22 Type 2 diabetes mellitus with diabetic chronic kidney disease; E11.69 Type 2 diabetes mellitus with other specified complication; I50.22 Chronic systolic (congestive) heart failure; N18.31 Chronic kidney disease, stage 3a; E66.01 Morbid (severe) obesity due to excess calories; I25.5 Ischemic cardiomyopathy
CPT/HCPCS: 36415; 80053; 80061; 83036; 84443; 85027

== ENCOUNTER → 2024-01-05 | Outpatient (CLI) | payer BC ==
[2024-01-05 11:56] LABS: HCT 44.5 % (39.6-50.0); HGB 14.2 g/dL (13.0-17.0); MCH 28.8 pg (27.0-32.0); MCHC 31.9 g/dL (32.0-37.0); MCV 90.3 FL (80.0-97.0); Mean Platelet Volume 10.8 FL (9.5-12.2); NRBC Per 100 WBC 0 X 10*3/uL (0.00-0.01); Platelet Count 240 X 10*3/uL (140-440); RBC 4.93 X 10*6/uL (4.40-5.60); WBC 7.96 X 10*3/uL (4.50-10.00)
[2024-01-05 12:24] LABS: Chol/HDL Ratio 1.97 Ratio; VLDL Calculation 15.74 mg/dL (5.00-40.00)
[2024-01-05 12:25] LABS: ALT 28 U/L (10-49); AST 22 U/L (14-35); Albumin 4.8 g/dL (3.8-4.9); Alkaline Phosphatase 62 U/L (41-126); BUN/Creat Ratio 17.73 Ratio (12.00-20.00); Blood Urea Nitrogen 19.5 mg/dL (9.0-27.0); Carbon Dioxide 22.2 mmol/L (21.6-31.8); Chloride 101 mmol/L (96-109); Globulin 2.4 g/dL (1.6-3.3); Glucose 140 mg/dL (70-110); Potassium 4.2 mmol/L (3.5-5.5); Sodium 138 mmol/L (135-145); Total Bilirubin 0.6 mg/dL (0.3-1.2); Total Protein 7.2 g/dL (6.2-8.2)
[2024-01-05 13:44] LABS: Microalbumin Creatinine Ratio <26 mg/g Cr (0-30); Urine Creatinine 46.4 mg/dL (39.0-259.0)
== END | disposition home or self-care (01) ==
LOC: LABWHC1 08:01
PROVIDERS: ATTEND Family Medicine
DX: E11.65 Type 2 diabetes mellitus with hyperglycemia (principal)
CPT/HCPCS: 36415; 80053; 80061; 82043; 82570; 83036; 84443; 85027